=== PATIENT | female | born 1985 | race Caucasian/White ===

== ENCOUNTER 2023-04-13 14:41 | Emergency (ER) | payer SELFPAY ==
[~2023-04-13] VITALS: Ht 160 cm; Wt 68.0 kg
[2023-04-13 14:48] VITALS: O2SAT 97
[2023-04-13] MEDS ORDERED: KETOROLAC 60MG/2ML VIAL IM ONE (17:00)
[2023-04-13] MEDS ORDERED: IBUPROFEN 400MG TABLET PO ONE (17:45)
[2023-04-13] MEDS ORDERED: IBUP-2028 MT (17:58)
[2023-04-13 18:58] VITALS: BP 136/90; PULSE 87; RESP 18; TEMP 98.2
== END 2023-04-13 19:02 | disposition home or self-care (01) ==
LOC: ER 14:41
DX: S09.90XA Unspecified injury of head, initial encounter (principal); V49.9XXA Car occupant (driver) (passenger) injured in unspecified traffic accident, initial encounter; Y93.89 Activity, other specified; Y92.89 Other specified places as the place of occurrence of the external cause; Y99.8 Other external cause status
CPT/HCPCS: 99282; J1885; Z7610